=== PATIENT | male | born 1975 | race Caucasian/White ===

== ENCOUNTER 2023-09-17 13:04 | Emergency (ER) | payer OTHER, SELFPAY ==
[2023-09-17 13:15] VITALS: BP 125/87
--- NOTE | 2023-09-17 17:39 | ED.GENMED ---
History of Present Illness
General
Chief Complaint: Cough
Time Seen by Provider: 09/17/23 17:12
Travel History
Have you had any contact with someone who has COVID-19?: No
Do you have any symptoms of coronavirus? Fever > 100 degrees, chills, cough, shortness of breath, sore throat, loss of taste or smell, muscle aches, or headache?: Yes
Symptoms:: Cough
History of Present Illness
History of Present Illness:
48-year-old male with no significant past medical history presents to the emergency department for evaluation of persistent dry cough ongoing for the past 2 weeks. He denies any initial symptoms of illness when he first developed a cough, denies
any nasal congestion, sore throat, or shortness of breath. He states that when he does have a severe coughing fit he develops a sensation of profound dyspnea. He denies any productive cough. Non-smoker, no history of oral tobacco use, does note
that the cough is worse first thing in the morning. 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
Review of Systems
Review of Systems
Allergies reviewed?: Yes
All Other Systems: ROS reviewed and negative except as documented in HPI and ROS
Phy Exam
Physical Exam
Physical Exam:
GEN: Well appearing, NAD, WDWN
HEENT: Oral mucosa moist, no scleral icterus. Oropharynx clear, mucous membranes are moist, no drainage
Cardiac: Regular rate
Lung: No respiratory distress, no tachypnea, lungs clear to auscultation
MSK: No gross deformity or injuries
Skin: Good color, no pallor or jaundice, no rashes
Neuro: AO x3, moves all extremities freely
Psych: Calm, cooperative
Course
Orders/Labs/Results
Orders:
Orders
09/17/23 13:18
Chest [CR Chest - 2 Views ] Urgent
Comment:
Reason For Exam: cough
Vital Signs
Initial and Last Documented VS:
Initial Vital Signs
Temp Pulse Resp BP Pulse Ox
98.7 F 101 18 125/87 96
09/17/23 13:15 09/17/23 13:15 09/17/23 13:15 09/17/23 13:15 09/17/23 13:15
Last Documented Vital Signs
Temp Pulse Resp BP Pulse Ox
98.7 F 64 18 130/79 95
09/17/23 13:15 09/17/23 18:14 09/17/23 18:14 09/17/23 18:14 09/17/23 18:14
MDM/Problems Addressed
MDM/Problems Addressed:
Unclear etiology to patient's symptoms, will trial PPIs and nasal anticholinergics
*Critical Care Note
Total Time (30-74mins, 75-104mins- exclusive of procedures): Not Applicable
ED Attending Note
-
Portions of this chart may have been created with voice recognition software.� Occasional wrong word or��sound alike� substitutions may have occurred due to the inherent limitations of voice recognition software.
Discharge Plan
Departure
Patient Disposition: Home (Routine Discharge)
Date of Disposition: 09/17/23
Time of Disposition: 17:57
Patient with high blood pressure during this ER visit?: No
Discharge Problem:
Cough, persistent
Instructions: Cough, Adult (DC)
Prescriptions:
New
pantoprazole [Protonix] 40 mg tablet,delayed release (DR/EC)
40 mg PO DAILY Qty: 14 0RF
ipratropium bromide 21 mcg (0.03 %) spray,non-aerosol
2 spray intranasal BID 14 Days Qty: 30 0RF
Referrals:
Bee Dawson MD [Family Provider] -
Magaly Polk MD [Active] -
Interventions
Interventions:
*Risk Screen - Suicide Last Done: 09/17/23 13:17
*General Assessment Last Done: 09/17/23 13:17
*Neglect/Abuse Screening Last Done: 09/17/23 13:17
ED- Fall Risk Assessment Last Done: 09/17/23 17:52
*ED COVID-19 Vaccine History Last Done: 09/17/23 13:18
*Nursing Disposition Last Done: 09/17/23 18:14
ED- Pulmonary Assessment Last Done: 09/17/23 17:52
Discharge Date and Time
Discharge Date/Time: 09/17/23 18:10
[2023-09-17 17:52] VITALS: BP 130/79
[2023-09-17 18:14] VITALS: BP 130/79
--- NOTE | 2023-09-17 18:14 | EDRN ---
Patient discharged by Bentley Gant PA-C.
== END 2023-09-17 18:10 | disposition home or self-care (01) ==
LOC: EMR 13:04
PROVIDERS: EMERGENCY PHYSICIAN Emergency Medicine; FAMILY PHYSICIAN Family Medicine
DX: R05.9 Cough, unspecified (principal)
CPT/HCPCS: 99283; 71046

== ENCOUNTER → 2023-10-15 09:08 | Outpatient (REF) | payer OTHER, SELFPAY | LOC: RAD 09:08 | PROVIDERS: ATTENDING PHYSICIAN Otolaryngology; FAMILY PHYSICIAN Family Medicine | DX: K21.9 Gastro-esophageal reflux disease without esophagitis (principal); R13.14 Dysphagia, pharyngoesophageal phase | CPT/HCPCS: 74221 ==